=== PATIENT | female | born 1975 | race Caucasian/White ===

== ENCOUNTER 2021-05-31 10:30 | Outpatient (CLI) | payer MEDICAID ==
[~2021-05-31 10:30] MED LIST: OMEP40CA21 PO
[2021-05-31] MEDS ORDERED: LEVO50TA8 PO (11:29)
[2021-05-31] MEDS ORDERED: HYDR-3972 PO (11:29)
[2021-05-31] MEDS ORDERED: TRAZ150T78 PO (11:29)
[2021-05-31] MEDS ORDERED: FURO40TA4 PO (11:29)
[2021-05-31] MEDS ORDERED: DIGO250T2 PO (11:29)
[2021-05-31] MEDS ORDERED: LISI10TA27 PO (11:29)
[2021-05-31] MEDS ORDERED: CARV-50 PO (11:29)
[2021-05-31] MEDS ORDERED: PRAZ1CAP5 PO (11:29)
[2021-05-31] MEDS ORDERED: ZOLP10TA PO (11:29)
[2021-05-31] MEDS ORDERED: POTA8CAP20 PO (11:29)
[2021-05-31 11:56] LABS: BASOPHILS % (AUTO) 0.5 % (0-1); EOSINOPHILS # (AUTO) 0.2 X10'3 (0-0.9); EOSINOPHILS % (AUTO) 1.9 % (0-6); LYMPHOCYTES # (AUTO) 2.3 X10'3 (1.1-4.8); LYMPHOCYTES % (AUTO) 25.6 % (21-51); MEAN CORPUSCULAR HEMOGLOBIN 28.8 PG (27.0-31.0); MEAN CORPUSCULAR HGB CONC 33.6 g/dL (33.0-36.5); MEAN CORPUSCULAR VOLUME 85.8 FL (78-98); MEAN PLATELET VOLUME 7.7 FL (7.4-10.4); MONOCYTES % (AUTO) 10.8 % (2-12); NEUTROPHILS # (AUTO) 5.5 X10'3 (1.8-7.7); NEUTROPHILS % (AUTO) 61.2 % (42-75); PRE OP HEMATOCRIT 43.5 % (35.0-45.0); PRE OP HEMOGLOBIN 14.6 g/dL (12.0-16.0); PRE OP PLATELET COUNT 309 X10'3 (140-440); RED BLOOD COUNT 5.07 X10'6 (4.20-5.60); RED CELL DISTRIBUTION WIDTH 13.5 % (11.5-14.5)
[2021-05-31 11:58] LABS: ALBUMIN 3.6 G/DL (3.4-5.0); ALBUMIN/GLOBULIN RATIO 0.9 (1.1-1.5); ALKALINE PHOSPHATASE 70 IU/L (46-116); BLOOD UREA NITROGEN 15 MG/DL (7-18); BUN/CREATININE RATIO 21.7 (6.6-38.0); CALCIUM 9.6 MG/DL (8.5-10.1); CHLORIDE 106 MMOL/L (99-107); CREATININE 0.69 MG/DL (0.40-0.90); PRE OP ALT 20 U/L (30-65); PRE OP ANION GAP 10 (8-16); PRE OP AST 13 U/L (10-37); PRE OP BILIRUB, TOTAL 0.5 MG/DL (0.0-1.0); PRE OP GLUCOSE 102 MG/DL (70-104); PRE OP POTASSIUM 4.3 MMOL/L (3.4-5.1); PRE OP SODIUM 139 MMOL/L (135-145); TOTAL CARBON DIOXIDE 22.8 MMOL/L (24-32); TOTAL PROTEIN 7.4 G/DL (6.4-8.2); eGFR > 90 ML/MIN
== END 2021-05-31 23:59 | disposition home or self-care (01) ==
LOC: LAB 10:30 → EDSTATUS 07-18 10:00
PROVIDERS: ATTEND Orthopaedic Surgery
DX: Z01.818 Encounter for other preprocedural examination (principal); Z20.822 Contact with and (suspected) exposure to COVID-19; S63.04 Subluxation and dislocation of carpometacarpal joint of thumb; G56.01 Carpal tunnel syndrome, right upper limb; G56.02 Carpal tunnel syndrome, left upper limb; G89.4 Chronic pain syndrome; G60.8 Other hereditary and idiopathic neuropathies; M54.50 Low back pain, unspecified; I50.1 Left ventricular failure, unspecified; F41.9 Anxiety disorder, unspecified; F32.9 Major depressive disorder, single episode, unspecified; E03.9 Hypothyroidism, unspecified; I10 Essential (primary) hypertension; E66.01 Morbid (severe) obesity due to excess calories; X58.XXXD Exposure to other specified factors, subsequent encounter
CPT/HCPCS: 36415; 80053; 85025; 93005; U0003; U0005

== ENCOUNTER 2021-07-18 06:42 | Day surgery (SDC) | payer MEDICAID ==
[2021-07-11 11:08] LABS: BASOPHILS % (AUTO) 0.5 % (0-1); EOSINOPHILS # (AUTO) 0.1 X10'3 (0-0.9); EOSINOPHILS % (AUTO) 2.1 % (0-6); LYMPHOCYTES # (AUTO) 1.6 X10'3 (1.1-4.8); LYMPHOCYTES % (AUTO) 24.1 % (21-51); MEAN CORPUSCULAR HEMOGLOBIN 28.2 PG (27.0-31.0); MEAN CORPUSCULAR HGB CONC 33.1 g/dL (33.0-36.5); MEAN CORPUSCULAR VOLUME 85.3 FL (78-98); MONOCYTES # (AUTO) 0.8 X10'3 (0-0.9); MONOCYTES % (AUTO) 11.1 % (2-12); NEUTROPHILS # (AUTO) 4.2 X10'3 (1.8-7.7); NEUTROPHILS % (AUTO) 62.2 % (42-75); PRE OP HEMATOCRIT 41.4 % (35.0-45.0); PRE OP HEMOGLOBIN 13.7 g/dL (12.0-16.0); PRE OP PLATELET COUNT 305 X10'3 (140-440); RED BLOOD COUNT 4.86 X10'6 (4.20-5.60); RED CELL DISTRIBUTION WIDTH 13.8 % (11.5-14.5)
[2021-07-11 11:19] LABS: ALBUMIN 3.4 G/DL (3.4-5.0); ALKALINE PHOSPHATASE 68 IU/L (46-116); BLOOD UREA NITROGEN 14 MG/DL (7-18); BUN/CREATININE RATIO 18.7 (6.6-38.0); CALCIUM 8.7 MG/DL (8.5-10.1); CHLORIDE 108 MMOL/L (99-107); CREATININE 0.75 MG/DL (0.40-0.90); PRE OP ALT 19 U/L (30-65); PRE OP ANION GAP 6 (8-16); PRE OP AST 13 U/L (10-37); PRE OP BILIRUB, TOTAL 0.6 MG/DL (0.0-1.0); PRE OP GLUCOSE 93 MG/DL (70-104); PRE OP POTASSIUM 4.5 MMOL/L (3.4-5.1); PRE OP SODIUM 142 MMOL/L (135-145); TOTAL CARBON DIOXIDE 27.9 MMOL/L (24-32); TOTAL PROTEIN 6.7 G/DL (6.4-8.2); eGFR 83 ML/MIN
[2021-07-18] VITALS (7 sets, daily range): BP systolic 112–137; BP diastolic 69–94
[~2021-07-18] VITALS: Ht 175.3 cm; Wt 147.0 kg
[~2021-07-18 06:42] MED LIST changes: +CARV-50 PO; +DIGO250T2 PO; +DOCUMENT DATE & TIME OF BETA-BLOCKER PO ONE; +FURO40TA4 PO; +HYDR-3972 PO; +LEVO50TA8 PO; +LISI10TA27 PO; -OMEP40CA21 PO; +POTA8CAP20 PO; +PRAZ1CAP5 PO; +TRAZ150T78 PO; +VANCOMYCIN 1,500MG inj. 1,500 MG in dextrose 5% water 500ml 300 ML IV ONE; +ZOLP10TA PO; +ceFAZolin inj. 3,000 MG in normal saline 100ml IV soln 100 ML IV ONE; +famotidine 20mg tablet PO ONE; +ringers solution, lacted 1,000 ML IV SCH
[2021-07-18] MEDS ORDERED: methylPREDNISolone sod succ 125mg/2ml vial ONE (07:16)
[2021-07-18] MEDS ORDERED: BUPIVAcaine 0.5% inj/PF 60 ML ONE (07:17)
[2021-07-18] MEDS ORDERED: meperidine/PF 25mg/ml syringe IV PRN ×3 (08:35)
[2021-07-18] MEDS ORDERED: ringers solution, lacted 1,000 ML IV SCH (08:35)
[2021-07-18] MEDS ORDERED: proCHLORperazine 10 MG/2 ml inj IV PRN (08:35)
[2021-07-18] MEDS ORDERED: morphine 4 MG/ML inj SYRINge IV PRN (08:35)
[2021-07-18] MEDS ORDERED: ondansetron/PF 4mg/2ml inj IV PRN (08:35)
[2021-07-18] MEDS ORDERED: morphine 2 MG/ML inj. syringe IV PRN (08:35)
--- NOTE | 2021-07-18 11:01 | NUR ---
Received from OR via , accompanied by Anesthesiologist DR MEJIAS and report given by Anesthesiolgist.AWAKENS TO VOICE. VITALS STABLE. DRESSING DI. ABE PAIN. FINGERS WARM AND PINK.
--- NOTE | 2021-07-18 12:11 | NUR ---
AWAKE AND ORIENTED. VITALS STABLE. DRESSING DI. ABE PAIN. RUE IN A SIMPLE SLING. HOME WITH HER DAUGHTER AT THIS TIME.
== END 2021-07-18 12:11 | disposition home or self-care (01) ==
LOC: PAS 06:42
PROVIDERS: ATTEND Orthopaedic Surgery
DX: G56.01 Carpal tunnel syndrome, right upper limb (principal); G56.21 Lesion of ulnar nerve, right upper limb; M18.11 Unilateral primary osteoarthritis of first carpometacarpal joint, right hand; S63.041A Subluxation of carpometacarpal joint of right thumb, initial encounter; F41.9 Anxiety disorder, unspecified; F32.A Depression, unspecified; G89.4 Chronic pain syndrome; E03.9 Hypothyroidism, unspecified; I11.0 Hypertensive heart disease with heart failure; I50.1 Left ventricular failure, unspecified; G43.909 Migraine, unspecified, not intractable, without status migrainosus; E66.01 Morbid (severe) obesity due to excess calories; Z68.42 Body mass index [BMI] 45.0-49.9, adult; M17.12 Unilateral primary osteoarthritis, left knee; Z79.899 Other long term (current) drug therapy; Z98.84 Bariatric surgery status; Z95.0 Presence of cardiac pacemaker; Z87.891 Personal history of nicotine dependence; Z96.653 Presence of artificial knee joint, bilateral; Z98.890 Other specified postprocedural states; Z20.822 Contact with and (suspected) exposure to COVID-19; X58.XXXA Exposure to other specified factors, initial encounter; Y93.89 Activity, other specified; Y92.89 Other specified places as the place of occurrence of the external cause; Y99.8 Other external cause status
CPT/HCPCS: 25447; 36415; 64417; 64719; 64721; 76942; 80053; 82948; 85025; C1713; J0690; J2405; J2930; J3370; J3490; J7030; J7060; J7120; S0020; U0003; U0005; Z7506; Z7508; Z7512; A4215; A4565; A4618; A6250; A6449; A6455; A7000; J7040